=== PATIENT | male | born 1955 | race Caucasian/White ===

== ENCOUNTER 2020-11-20 15:05 | Outpatient (RCR) | payer OTHER, SELFPAY ==
[2020-11-20] MEDS: COVID-19 VACC, MRNA(PFIZER)/PF 30 MCG/0.3 ML SYRINGE IM (08:52)
[2020-12-11] MEDS: COVID-19 VACC, MRNA(PFIZER)/PF 30 MCG/0.3 ML SYRINGE IM (08:45)
== END 2020-11-20 23:59 ==
LOC: IMMUN 15:05
PROVIDERS: PCP Family Medicine; Visit Provider Family Medicine
DX: Z23 Encounter for immunization (principal)
CPT/HCPCS: 0001A; 0002A; 91300

== ENCOUNTER 2021-09-08 15:19 | Outpatient (CLI) | payer OTHER, SELFPAY ==
[2021-09-08 18:05] LABS: Anion Gap 11 (5-15); BUN 14 mg/dL (7-18); BUN/Creat Ratio 14.3 RATIO (10-20); Calcium,Total 9.5 mg/dL (8.5-10.1); Chloride 104 mmol/L (98-107); Cholesterol 194 mg/dL (200); Creatinine, Serum 0.98 mg/dL (0.70-1.30); EST Glomerular Filtration Rate 82 mL/min (>60); Est Glom Filt Rate - Afr Amer 99 mL/min (>60); Glucose 117 mg/dL (74-106); High Density Lipoprotein 49 mg/dL; Sodium Level 140 mmol/L (136-145); Triglycerides 82 mg/dL; Very Low Density Lipoprotein 16 mg/dL (5-40)
== END 2021-09-08 23:59 | disposition short-term general hospital (02) ==
LOC: MFPLAB 15:21
PROVIDERS: PCP Family Medicine; Referring Provider Family Medicine; Visit Provider Family Medicine
DX: I10 Essential (primary) hypertension (principal)
CPT/HCPCS: 36415; 80048; 80061

== ENCOUNTER 2022-07-15 05:24 | Day surgery (SDC) | payer MEDICARE, OTHER, SELFPAY ==
[2022-07-15] VITALS (14 sets, daily range): BP systolic 109–170; BP diastolic 62–99; PULSE 64–77; RESP 16–18; TEMP 36.1–36.5; O2SAT 97–100; BMI 33.7
--- NOTE | 2022-07-15 | COLBX_PTH ---
PATIENT: ZAYRA ZURITA LOC: EN U#:[id number] AGE/SX: 66/M ROOM: RE07/15/[address]: Dr. Zheng Berumen MD : 1955 BED: DIS: 07/15/2022 SPEC #: [id number] RECD: 07/15/22 11:59 STATUS: BIN CHANG #: [id number] HOPE: 07/15/22 00:[address]: Zheng Berumen DEPT: SURGICAL PATHOLOGY RECD BY: Victor Hugo Carter ENTERED: 07/15/22 12:00 SP TYPE: COLON BX OTHR DR: Dr. Festus Mar MD Tissues: Rectum, NOS Procedures: Surgery Specimen Level IV HEADER OPERATION: Colonoscopy with polypectomy ? open access (MOD) PRE-OP DIAGNOSIS: Screening TISSUE SUBMITTED: Rectum polyp MICROSCOPIC DIAGNOSIS Rectum polyp, polypectomy: Fragments of hyperplastic polyp. /SJ 07/18/22 MICROSCOPIC DESCRIPTION Slides are reviewed. GROSS DESCRIPTION Received in fixative is one container labeled with the patient's name and designated rectal polyp. The specimen consists of multiple irregular fragments of light [place]wood soft tissue that in aggregate measure 1.3 x 0.3 x 0.1 cm. The specimen is totally submitted in one cassette. / SJ:rg 07/15/2022 TC:1 CPT: 09432
[2022-07-15] MEDS: Lactated Ringers 1,000 ML 15 ML IV (06:00)
--- NOTE | 2022-07-15 06:00 | PCM.HP.STD ---
[facility] - General General Date of Service: 07/15/22 Chief Complaint: Screening for intestinal cancer [facility] Narrative ZAYRA ZURITA, is a 66 M who presents for screening colonoscopy. He presents via open access today. His previous examination was June 2011. PENDING SALE TO [facility] Medical History Alcohol use Gastric reflux H/O psoriasis HTN (hypertension) Non-smoker Obesity Pure hypercholesterolemia, unspecified Wears glasses Home Medications losartan 50 mg tablet 50 mg PO QHS 06/01/22 [History Last Taken Unknown] multivitamin 1 tab PO DAILY 06/01/22 [History Last Taken Unknown] Allergy/AdvReac Type Severity Reaction Status Date / Time poison nunu extract Allergy Itching Verified 07/15/22 05:48 Family History (Updated 06/01/22 @ 11:42 by Shalini Mathis) Grandfather Esophageal cancer Heart failure Grandmother Breast cancer Mother Colon polyps Surgical History History of colonoscopy History of root canal procedure [place] teeth extracted Social History (Updated 06/01/22 @ 11:43 by Shalini Mathis) household members: spouse current occupational status: retired Smoking Status: Former smoker ROS Constitutional Constitutional: Reports systems reviewed and no addt'l complaints, except as documented Cardiovascular Cardiovascular: Denies chest pain Respiratory/Chest Respiratory/Chest: Denies shortness of breath at rest Gastrointestinal Gastrointestinal: Denies abdominal pain, change in bowel habits, hematochezia or melena Vital Signs Vital Signs Vital Signs: 07/15/22 05:49 07/15/22 05:51 Temperature 97.3 F L Temperature Source Temporal Pulse Rate 64 Respiratory Rate 18 Respiratory Pattern Normal Blood Pressure 160/71 H Blood Pressure Mean 100 Blood Pressure Source Monitor Blood Pressure Position Semi-Fowlers Blood Pressure Location Left Arm Pulse Ox 100 Oxygen Delivery Method Room Air Weight Weight: 221 lb 9.6 oz Body Mass Index (BMI) 33.7 Physical Exam Const alert, oriented x3 and no apparent distress General Appearance: cooperative and comfortable Eyes General Eye: normal appearance of both eyes Neck General: normal visual inspection Chest inspection of chest normal Resp Effort and Inspection: able to speak in complete sentences and symmetric chest movement Auscultation: clear to auscultation bilaterally Cardio regular rate and regular rhythm GI soft to palpation, non-tender and non-distended Extremity no calf tenderness Neuro oriented x3 Psych thought process normal Assessment & Plan Assessment/Plan (1) Encounter for screening for malignant neoplasm of colon: PLAN: I recommended the patient a screening colonoscopy with possible biopsy or polypectomy as indicated. He presents via open access today. He is aware of the technique, benefit, risk, alternatives. He has had an opportunity to ask and have questions answered. We will proceed as noted. Zheng Berumen M.D., F.A.C.S.
[2022-07-15] MEDS: Midazolam 5 MG/ML Syringe (06:34)
--- NOTE | 2022-07-15 06:53 | OP.COLON_ITS ---
Patient Name: Christofer Kinney Procedure Date: 07/15/2022 6:20 AM Date of : 1955 Age: 66 Procedure: Colonoscopy Indications: Screening for colorectal malignant neoplasm Providers: Zheng Berumen MD Medicines: Midazolam 4 mg IV, Meperidine 100 mg IV Patient Profile: Last Colonoscopy: June 2011. Complications: No immediate complications. Procedure: Pre-Anesthesia Assessment: - Prior to the procedure, a History and Physical was performed, and patient medications and allergies were reviewed. The patient's tolerance of previous anesthesia was also reviewed. The risks and benefits of the procedure and the sedation options and risks were discussed with the patient. All questions were answered, and informed consent was obtained. Prior Anticoagulants: The patient has taken no previous anticoagulant or antiplatelet agents. ASA Grade Assessment: II - A patient with mild systemic disease. After reviewing the risks and benefits, the patient was deemed in satisfactory condition to undergo the procedure. After I obtained informed consent, the scope was passed under direct vision. Throughout the procedure, the patient's blood pressure, pulse, and oxygen saturations were monitored continuously. The colonoscope was introduced through the anus and advanced to the cecum, identified by appendiceal orifice and ileocecal valve. The colonoscopy was performed without difficulty. The patient tolerated the procedure well. The quality of the bowel preparation was good. The ileocecal valve and the appendiceal orifice were photographed. Moderate Sedation: Moderate (conscious) sedation was personally administered by the endoscopist. The following parameters were monitored: oxygen saturation, heart rate, blood pressure, and response to care. Total physician intraservice time was 15 minutes. Scope In: 6:34:18 AM Scope Withdrawal Time 0 hours 10 minutes 22 seconds Scope Out: 6:48:28 AM Total Procedure Duration Time 0 hours 14 minutes 10 seconds Findings: The perianal and digital rectal examinations were normal. A 3 mm polyp was found in the rectum. The polyp was sessile. The polyp was removed with a cold biopsy forceps. Resection and retrieval were complete. The exam was otherwise without abnormality. Impression: - One 3 mm polyp in the rectum, removed with a cold biopsy forceps. Resected and retrieved. - The examination was otherwise normal. Recommendation: - Discharge patient to home. - Resume previous diet. - Continue present medications. - Repeat colonoscopy in 5 years for surveillance based on pathology results. - Telephone my office for pathology results in 1 week. Procedure Code(s): --- Professional --- 36279, Colonoscopy, flexible; with biopsy, single or multiple 76497, 59, Moderate sedation services provided by the same physician or other qualified health career development counselor performing the diagnostic or therapeutic service that the sedation supports, requiring the presence of an independent trained observer to assist in the monitoring of the patient's level of consciousness and physiological status; initial 15 minutes of intraservice time, patient age 5 years or older Diagnosis Code(s): --- Professional --- Z12.11, Encounter for screening for malignant neoplasm of colon K62.1, Rectal polyp CPT copyright 2017 [employer]. All rights reserved. The codes documented in this report are preliminary and upon drum builder review may be revised to meet current compliance requirements. Zheng Berumen MD 07/15/2022 6:52:44 AM This report has been signed electronically. Number of Addenda: 0 Note Initiated On: 07/15/2022 6:20 AM
--- NOTE | 2022-07-15 06:54 | OP.CCLET_ITS ---
07/15/2022 Festus Mar [address] [place] [address] Re : Colonoscopy procedure for Christofer Kinney Dear Dr. Mar This procedure was performed on Friday, July 15, 2022. My impressions and recommendations are as follows: Impressions : - One 3 mm polyp in the rectum, removed with a cold biopsy forceps. Resected and retrieved. - The examination was otherwise normal. Recommendations : - Discharge patient to home. - Resume previous diet. - Continue present medications. - Repeat colonoscopy in 5 years for surveillance based on pathology results. - Telephone my office for pathology results in 1 week. My findings are described in the full procedure note, which is enclosed. If I can be of further assistance, please feel free to contact me at Doctor phone number(s): Work: . Sincerely, Zheng Berumen MD 07/15/2022 6:52:44 AM This report has been signed electronically.
== END 2022-07-15 07:34 | disposition home or self-care (01) ==
LOC: EN 05:26 → AC 05:27
PROVIDERS: PCP Family Medicine; Referring Provider Family Medicine; Visit Provider Surgery
PROC: 0DJD8ZZ Inspection of Lower Intestinal Tract, Via Natural or Artificial Opening Endoscopic (ICD-10-PCS; CPT 45378; principal; 2022-07-15 06:25)
DX: Z12.11 Encounter for screening for malignant neoplasm of colon (principal); K62.1 Rectal polyp; I10 Essential (primary) hypertension; Z87.891 Personal history of nicotine dependence; Z79.899 Other long term (current) drug therapy
CPT/HCPCS: 45380; 88305; 99152; 99153; J7120

== ENCOUNTER → 2022-09-09 | Outpatient (CLI) | payer MEDICARE, OTHER, SELFPAY ==
[2022-09-09 12:38] LABS: ALB/GLOB Ratio 1.3 RATIO (0.9-2.4); AST(SGOT) 17 U/L (15-37); Alanine Aminotransfer ALT/SGPT 31 U/L (16-61); Albumin, Serum 3.8 g/dL (3.2-5.0); Alkaline Phosphatase 82 U/L (45-117); Anion Gap 9 (5-15); BUN 14 mg/dL (7-18); BUN/Creat Ratio 14.7 RATIO (10-20); Calcium,Total 8.8 mg/dL (8.5-10.1); Chloride 106 mmol/L (98-107); Cholesterol 199 mg/dL (200); Creatinine, Serum 0.95 mg/dL (0.70-1.30); EST Glomerular Filtration Rate 84 mL/min (>60); Est Glom Filt Rate - Afr Amer 102 mL/min (>60); Globulin 2.9 g/dL (2.2-4.2); Glucose 99 mg/dL (74-106); High Density Lipoprotein 43 mg/dL; Potassium 4.3 mmol/L (3.5-5.1); Protein, Total 6.7 g/dL (6.4-8.2); Sodium Level 141 mmol/L (136-145); Triglycerides 125 mg/dL; Very Low Density Lipoprotein 25 mg/dL (5-40)
== END | disposition home or self-care (01) ==
LOC: MFPLAB 09:21
PROVIDERS: PCP Family Medicine; Visit Provider Family Medicine
DX: I10 Essential (primary) hypertension (principal); E66.01 Morbid (severe) obesity due to excess calories
CPT/HCPCS: 36415; 80053; 80061

== ENCOUNTER → 2023-03-10 | Outpatient (CLI) | payer MEDICARE, OTHER, SELFPAY ==
[2023-03-10 13:03] LABS: Microalbumin,Random Urine 5.8 mg/L (NO RANGE EST.); Microalbumin:Creatinine Ratio 7.4 mg/g CRE (<30 mg/g CRE)
[2023-03-10 13:07] LABS: ALB/GLOB Ratio 1.1 RATIO (0.9-2.4); AST(SGOT) 15 U/L (15-37); Alanine Aminotransfer ALT/SGPT 30 U/L (16-61); Albumin, Serum 3.7 g/dL (3.2-5.0); Alkaline Phosphatase 86 U/L (45-117); Anion Gap 3 (5-15); BUN 13 mg/dL (7-18); BUN/Creat Ratio 13.1 RATIO (10-20); Calcium,Total 9.1 mg/dL (8.5-10.1); Chloride 105 mmol/L (98-107); Cholesterol 182 mg/dL (200); EST Glomerular Filtration Rate 80 mL/min (>60); Est Glom Filt Rate - Afr Amer 97 mL/min (>60); Globulin 3.5 g/dL (2.2-4.2); Glucose 108 mg/dL (74-106); High Density Lipoprotein 43 mg/dL; PSA,Total - Annual Screen 0.45 ng/mL (0.00-4.00); Potassium 4.4 mmol/L (3.5-5.1); Protein, Total 7.2 g/dL (6.4-8.2); Sodium Level 138 mmol/L (136-145); Triglycerides 172 mg/dL; Very Low Density Lipoprotein 34 mg/dL (5-40)
== END | disposition home or self-care (01) ==
LOC: MFPLAB 09:35
PROVIDERS: PCP Family Medicine; Visit Provider Family Medicine
DX: I10 Essential (primary) hypertension (principal); Z12.5 Encounter for screening for malignant neoplasm of prostate; E78.00 Pure hypercholesterolemia, unspecified
CPT/HCPCS: 36415; 80053; 80061; 82043; 82570; 84153; G0103

== ENCOUNTER → 2023-09-11 | Outpatient (CLI) | payer MEDICARE, OTHER, SELFPAY ==
[2023-09-11 10:28] LABS: Absolute Lymphocyte Count 2.61 X10^3/uL (0.83-4.51); Absolute Neutrophil Count 3.8 X10^3/uL (2.0-7.7); Basophil# 0.08 X10^3/uL; Basophil% 1.1 % (0-1); Eosinophil# 0.29 X10^3/uL; Eosinophils% 3.9 % (0-5); Hematocrit 47.2 % (40-54); Hemoglobin 15.7 g/dL (13.0-16.5); Lymphocyte # 2.61 X10^3/ul (0.83-4.51); Lymphocyte % 35.4 % (19-41); Mean Corp Hgb Conc 33.3 g/dL (32-36); Mean Corpuscular Hgb 30.8 pg (27.0-32.0); Mean Corpuscular Volume 92.5 fL (80-94); Mean Platelet Vol. 9.5 fl (6.2-12.0); Monocyte# 0.62 X10^3/uL; Monocyte% 8.4 % (0-10); NRBC Flagged by Analyzer 0 % (0-5); Neutrophil # 3.75 X10^3/uL (2.7-7.7); Neutrophil % 50.8 % (47-70); Platelet Count 258 K/mm3 (150-450); RBC Distribution Width CV 12.8 % (11.6-14.6); RBC Distribution Width SD 43.6 fl (35.1-43.9); White Blood Count 7.4 K/mm3 (4.4-11.0)
[2023-09-11 11:11] LABS: Anion Gap 5 (5-15); BUN 15 mg/dL (7-18); BUN/Creat Ratio 13.9 RATIO (10-20); Calcium,Total 9.4 mg/dL (8.5-10.1); Chloride 106 mmol/L (98-107); Creatinine, Serum 1.08 mg/dL (0.70-1.30); EST Glomerular Filtration Rate 73 mL/min (>60); Est Glom Filt Rate - Afr Amer 88 mL/min (>60); Glucose 115 mg/dL (74-106); Potassium 4.4 mmol/L (3.5-5.1); Sodium Level 138 mmol/L (136-145)
== END | disposition home or self-care (01) ==
LOC: MFPLAB 08:34
PROVIDERS: PCP Family Medicine; Visit Provider Family Medicine
DX: R05.9 Cough, unspecified (principal); I10 Essential (primary) hypertension
CPT/HCPCS: 36415; 80048; 85025

== ENCOUNTER 2024-07-24 08:30 | Outpatient (RCR) | payer MEDICARE, OTHER, SELFPAY ==
--- NOTE | 2024-07-02 08:55 | HP.PTEVAL_ITS ---
Patient's Visit Information Visit Information Visit Information: ZAYRA ZURITA is a 68 year old M referred to Physical Therapy by RADHA Summers with a diagnosis of R knee pain. Date of Evaluation: 07/02/24 Physical Therapist: Wilder Mcguire, PT, ATC Visit Plan Frequency: 2x /Week Duration: 4 Weeks Plan: R LE strengthening, core stab ex's, balance and proprio, bike, and HEP Subjective Subjective: Pt reports he has had R knee pain intermittently over the years that would go away in 1-2 days. This episode started 3 weeks ago and has not let up. Pt reports his pain is worse when he attempts to descend stairs. Pn reports he has to negotiate the stairs backwards. Pt reports no Dx tests at this time. Pt reports most of his pain is on the inside of his R knee. Pt notes his pain even hurts while he is sleeping. Pt denies knee giving out or locking up on him at this time. Pt denies any tingling or numbness in R knee. Pt reports he has difficulty with performing most of his daily chores secondary to pain. 1/10 pain in R knee while sitting down, 4/10 at worst. 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 Palpation: Pt is tender on the medial aspect of R knee. No obvious deformity at this time. No crepitus with AROM ROM: L knee 0-120 degrees, R knee 0-15-105 degrees MMT: L knee flex= 45, ext= 63 #F; R knee flex= 41, ext= 35 #F Special tests: Pos compression test Balance/Special Test Scores Lower Extremity Functional Score: 67 Goals Goal 1:: Decrease R knee pain x 50% to aid with sleep Goal Time Frame: 2-4 Weeks Goal 2:: Increase R knee extension strength x 10#F to aid with stair negotiation Goal Time Frame: 2-4 Weeks Goal 3:: Increase R knee ROM x 10 degrees to aid with squatting activity Goal Time Frame: 2-4 Weeks Goal 4:: I with HEP Goal Time Frame: 2-4 Weeks Rehabilitation Potential Physical Therapy Diagnosis: Pt has R knee pain, weakness, and limited ROM secondary to degenerative changes Rehabilitation Potential: Good Anticipated Interventions Patient/Client Instruction: Educate patient on: Condition and Plan of Care For the Purpose of:: To improve self management Therapeutic Exercise to Include: Strength training, Balance training, Flexibilty training and Dynamic Lumbar Stabilization For the Purpose of:: To decrease pain, To increase ROM and To improve muscle performance and motor function Cryotherapy (ice pack, ice massage): Yes For the Purpose of:: To decrease pain Text: Thank you for the opportunity to evaluate your patient. For Medicare and Medicare HMO plans, please review the plan of care and approve it. It will need to be FAXED BACK to us at [phone] for Medicare purposes. For Medicare only, by signing this I certify the plan of care. Please let me know if there are questions or concerns regarding this plan of care. Physician Signature: Date:_
--- NOTE | 2024-07-24 09:11 | HP.PTDCSUM ---
Discharge Summary D/C summary: It has been my pleasure to treat ZAYRA ZURITA referred by RADHA Summers, with the diagnosis of R knee pain for a total of 7 visit(s). Discharge Date: Please see the following information for a summary of their discharge status. Subjective Subjective: My pain is about the same Pain R knee: Pain Intensity (Out of 10): 4 Overall Improvement % Improvement: 10 Objective Objective/Function: R knee pain ranges from 4-5/10 R knee ROM: 0-3-117 degrees R knee MMT: ext= 29 #F Pain and strength have remained relatively unchanged. ROM has significantly improved Goals Goal 1:: Decrease R knee pain x 50% to aid with sleep Goal Progress: Progressing Goal 2:: Increase R knee extension strength x 10#F to aid with stair negotiation Goal Progress: Not Progressing Goal 3:: Increase R knee ROM x 10 degrees to aid with squatting activity Goal Progress: Goal Met Goal 4:: I with HEP Goal Progress: Goal Met Plan Plan: Discontinue secondary to lack of progress. Cont with HEP D/C Information d/c sentence: If there are questions or concerns regarding this patient's physical therapy, please feel free to call me at [phone]. Thank you for the referral of this patient. Sincerely, Wilder Mcguire, PT, ATC Balance/Gait/Functional tests Balance/Special Test Scores Lower Extremity Functional Score: 60 Improvement % Improvement: 10
== END 2024-07-24 09:21 | disposition home or self-care (01) ==
LOC: PT 08:30
PROVIDERS: PCP Family Medicine
DX: M25.561 Pain in right knee (principal)
CPT/HCPCS: 97110; 97161; 97530

== ENCOUNTER → 2024-08-12 | Outpatient (CLI) | payer MEDICARE, OTHER, SELFPAY ==
--- NOTE | 2024-08-12 16:15 | MRI_ITS ---
STUDY: MRI RIGHT KNEE REASON FOR EXAM: Male, 68 years old. Knee pain for 4 months. No known injury. TECHNIQUE: Standardized fat and water weighted pulse sequences were obtained in all 3 orthogonal planes. COMPARISON: None. FINDINGS: There is a horizontal tear of the body of the medial meniscus (coronal PD series 6 images 15-17). There is mild reactive subchondral marrow edema medial tibial plateau. Normal hyaline cartilage of the medial femorotibial compartment. There is mild osteoarthritic spur formation of the medial knee compartment. There is a mild grade I MCL sprain with periligamentous edema (coronal T2 series 7 images 15-17). Normal distal semimembranosus, gracilis and semitendinosus tendons. Normal lateral meniscus. There is mild degenerative arthrosis of the lateral femorotibial compartment with tiny marginal osteophyte formation and focal chondromalacia along the posterior weightbearing surface of the lateral femoral condyle (coronal T2 series 7 image 19). Normal proximal tibiofibular articulation. Normal lateral collateral (fibular) ligament. Normal popliteus tendon. Normal biceps femoris tendon. Normal anterior cruciate ligament (ACL). Normal posterior cruciate ligament (PCL). There is focal low-grade chondromalacia along the lateral aspect of the patellar apex (axial T2 series 3 image 22). There is mild lateral patellar subluxation. Normal medial and lateral patellar retinaculum. Normal quadriceps tendon. Normal patellar tendon. Normal Hoffa''s fat pad. There is a small joint effusion. There is a small popliteal cyst. There is mild subcutaneous soft tissue edema along the medial aspect of the knee. There is no acute fracture. MRI/Lower Ext Joint Only (Routine) IMPRESSION: Horizontal tear of the body of the medial meniscus. Mild reactive subchondral marrow edema medial tibial plateau. Mild tricompartment degenerative arthrosis. Mild grade I MCL sprain. Mild lateral patellar subluxation. Small joint effusion, with a small popliteal cyst. Mild subcutaneous soft tissue edema along the medial aspect of the knee. Electronically Signed: Chris Sewell MD at 11:40 EST ,
== END | disposition home or self-care (01) ==
LOC: MRI 15:40
PROVIDERS: PCP Family Medicine
DX: M25.561 Pain in right knee (principal)
CPT/HCPCS: 73721

== ENCOUNTER → 2025-04-18 | Outpatient (CLI) | payer MEDICARE, OTHER, SELFPAY ==
--- OUTSIDE RECORDS SUMMARY | 2025-04-18 08:22 | XMS RPT_ITS | CCD ---
Author Organization [facility] Care Team Providers Care Dowel Pin Worker Name Role Phone Dr. Festus Mar Primary Care Provider [phone] Shalini Mathis Attending Provider Unavailable Dr. Festus Mar Referring Provider [phone] Zheng Berumen Attending Provider [phone] Dr. Zheng Berumen Other Provider [phone] Yeyo, [place] Referring Unavailable Festus Mar Primary Care Unavailable KimberliorrIsrael hollingsworth Attending Unavailable Kimberliorrow, [place] Referring Unavailable Festus Mar Primary [facility] [place] Attending Unavailable Allergies Allergy Classification Reported Allergen(s) Allergy Type Date of Onset Reaction(s) Facility (4 sources) POISON NUNU EXTRACT Drug Allergy 07-15-2022 Itching [facility] (1 source) poison nunu extract Drug allergy (disorder) 07-15-2022 [facility] Repository Medications Current Medications Medication Drug Class(es) Dates Sig (Normalized) Sig (Original) losartan potassium 50 mg oral tablet (4 sources) Angiotensin 2 Receptor Rose Start: 06-01-2022 take 50 mg by mouth at bedtime Losartan Active 50 MG PO AT BEDTIME May 31, 2022 11:00pm Multivitamin preparation (4 sources) Start: 06-01-2022 take 1 tablet by mouth once daily Multivitamin Active 1 TABLET PO DAILY June 01, 2022 12:00am Start: 06-01-2022 take 1 tablet by araceli th once daily Multivitamin Active 1 TABLET PO DAILY May 31, 2022 11:00pm Problems Problem Classification Problem Date Documented Da te Episodic/Chronic Other non-traumatic joint disorders (1 source) Pain in right knee; Translations: [Pain in right knee] Onset: 09-12-2024 Episodic Other screening for suspected conditions (not mental disorders or infectious disease) (6 sources) Patient encounter status; Translations: [Encounter for screening for malignant neoplasm of colon] Episodic Results Test Name Value Interpretation Reference Range Facility Lower Ext Joint Only (Routin e)on 08-12-2024 Lower Ext Joint Only (Routine) [facility] Imaging Services [address] [place] [address] Lower Ext Joint Only (Routine) MR#: [id number] Acct: [id number] Name: ZAYRA ZURITA Rep #: [id number] : 1955 M 68 From: Chris Sewell MD PCP: Dr. Festus Mar MD Status: REG CLI Study: Lower Ext Joint Only (Routine) Date of Exam: 10/13/23 Exam# [id number] Ordering Dr: Israel Orona NP [employer] -C [id number] STUDY: MRI RIGHT KNEE REASON FOR EXAM: Male, 68 years old. Knee pain for 4 months. No known injury. TECHNIQUE: Standardized fat and water weighted pulse sequences were obtained in all 3 orthogonal planes. COMPARISON: None. FINDINGS: There is a horizontal tear of the body of the medial meniscus (coronal PD series 6 images 15-17). There is mild reactive subchondral marrow edema medial tibial plateau. Normal hyaline cartilage of the medial femorotibial compartment. There is mild osteoarthritic spur formation of the medial knee compartment. There is a mild grade I MCL sprain with periligamentous edema (coronal T2 series 7 images 15-17). Normal distal semimembranosus, gracilis and semitendinosus tendons. Normal lateral meniscus. There is mild degenerative arthrosis of the lateral femorotibial compartment with tiny marginal osteophyte formation and focal chondromalacia along the posterior weightbearing surface of the lateral femoral condyle (coronal T2 series 7 image 19). Normal proximal tibiofibular articulation. Normal lateral collateral (fibular) ligament. Normal popliteus tendon. Normal biceps femoris tendon. Normal anterior cruciate ligament (ACL). Normal posterior cruciate ligament (PCL). There is focal low-grade chondromalacia along the lateral aspect of the patellar apex (axial T2 series 3 image 22). There is mild lateral patellar subluxation. Normal medial and lateral patellar retinaculum. Normal quadriceps tendon. Normal patellar tendon. Normal Hoffa''s fat pad. There is a small joint effusion. There is a small popliteal cyst. There is mild subcutaneous soft tissue edema along the medial aspect of the knee. There is no acute fracture. MRI/Lower Ext Joint Only (Routine) IMPRESSION: Horizontal tear of the body of the medial meniscus. Mild reactive subchondral marrow edema medial tibial plateau. Mild tricompartment degenerative arthrosis. Mild grade I MCL sprain. Mild lateral patellar subluxation. Small joint effusion, with a small popliteal cyst. Mild subcutaneous soft tissue edema along the medial aspect of the knee. Electronically Signed: Chris Sewell MD at 11:40 EST Reading Location ID and State: [address] [place] [address] , Service support , CC: Israel Orona; Dr. Festus Mar MD Experimental Box Tester: Signed Normal [facility] PT D/C Summary (1)on [facility] PT D/C Summary (1) [facility] Physical Therapy [address] [place] [address] / REHABILITATION SERVICES DISCHARGE SUMMARY MR#: [id number] Acct: [id number] Name: ZAYRA ZURITA Rep #: [id number] : 1955 68 From: Wilder Mcguire PT, ATC Referring DrIlsa: Israel Orona Status: R EG RCR Insurance: MEDICARE PART A B [facility] Discharge Summary D/C summary: It has been my pleasure to treat ZAYRA ZURITA referred by RADHA Summers, with the diagnosis of R knee pain for a total of 7 visit(s). Discharge Date: Please see the following information for a summary of their discharge status. Subjective Subjective: My pain is about the same Pain R knee: Pain Intensity (Out of 10): 4 Overall Improvement % Improvement: 10 Objective Objective/Function: R knee pain ranges from 4-5/10 R knee ROM: 0-3-117 degrees R knee MMT: ext= 29 #F Pain and strength have remained relatively unchanged. ROM has significantly improved Goals Goal 1:: Decrease R knee pain x 50% to aid with sleep Goal Progress: Progressing Goal 2:: Increase R knee extension strength x 10#F to aid with stair negotiation Goal Progress: Not Progressing Goal 3:: Increase R knee ROM x 10 degrees to aid with squatting activity Goal Progress: Goal Met Goal 4:: I with HEP Goal Progress: Goal Met Plan Plan: Discontinue secondary to lack of progress. Cont with HEP D/C Information d/c sentence: If there are questions or concerns regarding this patient's physical therapy, please feel free to call me at [phone]. Thank you for the referral of this patient. Sincerely, Wilder Mcguire, PT, ATC Balance/Gait/Functio nal tests Balance/Special Test Scores Lower Extremity Functional Score: 60 Improvement % Improvement: 10 07/24/24 0911 CC: Israel Orona; Dr. Festus Mar MD [facility] Signed Normal [facility] Inital Evaluation (1) - PTon 07-02-2024 Inital Evaluation (1) - PT [facility] Physical Therapy [facility] [address] [place] [address] [address] [place] [address] / REHABILITATION SERVICES INITIAL EVALUATION MR#: [id number] Acct: [id number] Name: ZAYRA ZURITA Rep #: [id number] : 1955 68 From: Wilder Mcguire PT, ATC Referring Dr.: Israel Orona NP Status: R EG RCR Insurance: MEDICARE PART A B [facility] Patient's Visit Information Visit Information Visit Information: ZAYRA ZURITA is a 68 year old M referred to Physical Therapy by RADHA Summers with a diagnosis of R knee pain. Date of Evaluation: 07/02/24 Physical Therapist: Wilder Mcguire, PT, ATC Visit Plan Frequency: 2x /Week Duration: 4 Weeks Plan: R LE strengthening, core stab ex's, balance and proprio, bike, and HEP Subjective Subjective: Pt reports he has had R knee pain intermittently over the years that would go away in 1- 2 days. This episode started 3 weeks ago and has not let up. Pt reports his pain is worse when he attempts to descend stairs. Pn reports he has to negotiate the stairs backwards. Pt reports no Dx tests at this time. Pt reports most of his pain is on the inside of his R knee. Pt notes his pain even hurts while he is sleeping. Pt denies knee giving out or locking up on him at this time. Pt denies any tingling or numbness in R knee. Pt reports he has difficulty with performing most of his daily chores secondary to pain. 1/10 pain in R knee while sitting down, 4/10 at worst. Pt is retired at this time, but still works in [employer] Pain R knee: Pain Intensity (Out of 10): 1 Pain Intensity Range: 4 Objective Objective: Neuro: B LE sensation is WNL to light touch. Palpation: Pt is tender on the medial aspect of R knee. No obvious deformity at this time. No crepitus with AROM ROM: L knee 0-120 degrees, R knee 0-15-105 degrees MMT: L knee flex= 45, ext= 63 #F; R knee flex= 41, ext= 35 #F Special tests: Pos compression test Balance/Special Test Scores Lower Extremity Functional Score: 67 Goals Goal 1:: Decrease R knee pain x 50% to aid with sleep Goal Time Frame: 2-4 Weeks Goal 2:: Increase R knee extension strength x 10#F to aid with stair negotiation Goal Time Frame: 2-4 Weeks Goal 3:: Increase R knee ROM x 10 degrees to aid with squatting activity Goal Time Frame: 2-4 Weeks Goal 4:: I with HEP Goal Time Frame: 2-4 Weeks Rehabilitation Potential Physical Therapy Diagnosis: Pt has R knee pain, weakness, and limited ROM secondary to degenerative changes Rehabilitation Potential: Good Anticipated Interventions Patient/Client Instruction: Educate patient on: Condition and Plan of Care For the Purpose of:: To improve self management Therapeutic Exercise to Include: Strength training, Balance training, Flexibilty training and Dynamic Lumbar Stabilization For the Purpose of:: To decrease pain, To increase ROM and To improve muscle performance and motor function Cryotherapy (ice pack, ice massage): Yes For the Purpose of:: To decrease pain Text: Thank you for the opportunity to evaluate your patient. For Medicare and Medicare HMO plans, please review the plan of care and approve it. It will need to be FAXED BACK to us at [phone] for Medicare purposes. For Medicare only, by signing this I certify the plan of care. Please let me know if there are questions or concerns regarding this plan of care. Physician Signature: D ate: 07/02/24 0855 CC: Israel GARCIA McMorrow; Dr. Festus Mar MD [facility] Signed Normal [facility] Absolute lymphocyte countOrd ered By: Festus Mar on 09-11-2023 Lymphocytes Auto (Unsp spec) [#/Vol] 2.61 10*3/uL 0.83-4.51 [facility] Basophil percentageOrdered B y: Festus Mar on 09-11-2023 Basophils/100 WBC (Bld) 1.1 % 0-1 [facility] Chloride [Moles/Vol] 106 mmol/L 98-107 [facility] Eosinophils/100 WBC (Bld) 3.9 % 0-5 [facility] Glucose [Mass/Vol] 115 mg/dL 74-106 [facility] Comment on above: Fasting Glucose resu lt from 100 to 125 mg/dL suggests IMPAIRED HOMEOSTASIS per A.D.A. criteria. Neutrophils (Bld) [#/Vol] 3.8 10*3/uL 2.0-7.7 [facility] Neutrophils/100 WBC (Bld) 50.8 % 47-70 [facility] Potassium [Moles/Vol] 4.4 mmol/L 3.5-5.1 [facility] Sodium [Moles/Vol] 138 mmol/L 136-145 [facility] WBC (Bld) [#/Vol] 7.4 10*3/uL 4.4-11.0 [facility] Blood erythrocytes count (nu mber/volume)Ordered By: Festus Mar on 09-11-2023 RBC (Bld) [#/Vol] 5.10 10*6/uL 4.6-6.[address] [facility] Blood hemoglobin measurement (mass/volume)Ordered By: Festus Mar on 09-11-2023 Hemoglobin (Bld) [Mass/Vol] 15.7 g/dL 13.0-16.5 [facility] Blood lymphocytes/100 leukoc ytesOrdered By: Festus Mar on 09-11-2023 Lymphocytes/100 WBC (Bld) 35.4 % 19-41 [facility] Blood monocytes/100 leukocyt esOrdered By: Festus Mar on 09-11-2023 Monocytes/100 WBC (Bld) 8.4 % 0-10 [facility] Blood platelet mean volumeOr dered By: Festus Mar on 09-11-2023 Platelet mean volume (Bld) [Entitic vol] 9.5 fL 6.2-12.0 [facility] Determination of erythrocyte mean corpuscular volume (MCV)Ordered By: Festus Mar on 09-11-2023 MCV (RBC) [Entitic vol] 92.5 fL 80-94 [facility] Hematocrit Auto (Bld) [Volum e fraction]Ordered By: Fsetus Mar on 09-11-2023 Hematocrit (Bld) [Volume fraction] 47.2 % 40-54 [facility] Laboratory - Chemistry and C hemistry - challengeOrdered By: Festus Mar on 09-11-2023 CO2 [Moles/Vol] 27.0 mmol/L 21.0-32.0 [facility] Urea nitrogen/Creatinine [Mass ratio] 13.9 mg/mg 10-20 [facility] Laboratory - Hematology and Cell countsOrdered By: Festus Mar on 09-11-2023 Erythrocyte distribution width (RBC) [Entitic vol] 43.6 fL 35.1-43.9 [facility] Erythrocyte distribution width (RBC) [Ratio] 12.8 % 11.6-14.6 [facility] Immature granulocytes/100 WBC (Bld) 0.400 % 0.0-0.9 [facility] Comment on above: IG% - Immature Granu locytes (promyelocytes, myelocytes and metamyelocytes) > 1% indicates that a LEFT SHIFT is Present. MCH (RBC) [Entitic mass] 30.8 pg 27.0-32.0 [facility] Nucleated RBC/100 WBC (Bld) [Ratio] 0 % 0-5 [facility] MCHC Auto (RBC) [Mass/Vol]Or dered By: Festus Mar on 09-11-2023 MCHC (RBC) [Mass/Vol] 33.3 g/dL 32-36 [facility] No Panel InformationOrdered By: Festus Mar on 09-11-2023 Estimated GFR (MDRD) Amer 88 mL/min >60 [facility] Comment on above: GFR Calc Estimated GFR (MDRD) Non-Af Amer 73 mL/min >60 [facility] Comment on above: Non- GFR Calc Platelets bldOrdered By: Aubree Mar on 09-11-2023 Platelets (Bld) [#/Vol] 258 10*3/uL 150-450 [facility] Serum or plasma calcium terri urement (mass/volume)Ordered By: Festus Mar on 09-11-2023 Calcium [Mass/Vol] 9.4 mg/dL 8.5-10.1 [facility] Serum or plasma creatinine m easurement (mass/volume)Ordered By: Festus Mar on 09-11-2023 Creatinine [Mass/Vol] 1.08 mg/dL 0.70-1.30 [facility] Comment on above: The validity of the calculated GFR & GFRAA in patients over 70 years has not been determined. Clinical correlation is essential. Serum or plasma urea nitroge n measurement (mass/volume)Ordered By: Festus Mar on 09-11-2023 Urea nitrogen [Mass/Vol] 15 mg/dL 7-18 [facility] Thin prep Papanicolaou smear with manual screeningOrdered By: Festus Mar on 09-11-2023 Thin prep Papanicolaou smear with manual screening 5 5-15 [facility] Basophil percentageOrdered B y: Festus Mar on 03-10-2023 Bilirubin [Mass/Vol] 0.60 mg/dL 0.20-1.00 [facility] Comment on above: For patients on eltr ombopag therapy, use of Dimension Roff TBIL is not recommended. Chloride [Moles/Vol] 105 mmol/L 98-107 [facility] Cholesterol [Mass/Vol] 182 mg/dL <200 [facility] Comment on above: <200 mg/dL Desirable 200-240 mg/dL Borderline >240 mg/dL High Risk Glucose [Mass/Vol] 108 mg/dL 74-106 [facility] Comment on above: Fasting Glucose resu lt from 100 to 125 mg/dL suggests IMPAIRED HOMEOSTASIS per A.D.A. criteria. Potassium [Moles/Vol] 4.4 mmol/L 3.5-5.1 [facility] Protein [Mass/Vol] 7.2 g/dL 6.4-8.2 [facility] Sodium [Moles/Vol] 138 mmol/L 136-145 [facility] Triglyceride [Mass/Vol] 172 mg/dL <199 [facility] Comment on above: The drugs N-Acetylcy steine and Metamizole may falsely depress this assay.Serum Triglycerides Reference Interval Normal <150 mg/dL Borderline high 150 - 199 mg/dL High 200 - 499 mg/dL Very High > or = 500 mg/dL Laboratory - Chemistry and C hemistry - challengeOrdered By: Festus Mar on 03-10-2023 ALP [Catalytic activity/Vol] 86 U/L 45-117 [facility] ALT [Catalytic activity/Vol] 30 U/L 16-61 [facility] CO2 [Moles/Vol] 30.0 mmol/L 21.0-32.0 [facility] Globulin (S) [Mass/Vol] 3.5 g/dL 2.2-4.2 [facility] Urea nitrogen/Creatinine [Mass ratio] 13.1 mg/mg 10-20 [facility] No Panel InformationOrdered By: Festus Mar on 03-10-2023 Estimated GFR (MDRD) Amer 97 mL/min >60 [facility] Comment on above: GFR Calc Estimated GFR (MDRD) Non-Af Amer 80 mL/min >60 [facility] Comment on above: Non- GFR Calc Prostate Specific Antigen Screen 0.45 ng/mL 0.00-4.00 [facility] Comment on above: This test was perfor med using the TPSA assay method for theNextworth chemistry system. Values obtained with differentassay methods cannot be used interchangably.When changing PSA assays in the course of monitoring apatient, additional sequential testing should be carriedout to confirm baseline values. Urine Microalbumin/Creatinine Ratio 7.4 mg/g CRE <30 [facility] Serum or plasma albumin terri urement (mass/volume)Ordered By: Festus Mar on 03-10-2023 Albumin [Mass/Vol] 3.7 g/dL 3.2-5.0 [facility] Serum or plasma albumin/glob ulin mass ratioOrdered By: Festus Mar on 03-10-2023 Albumin/Globulin [Mass ratio] 1.1 {ratio} 0.9-2.4 [facility] Serum or plasma calcium terri urement (mass/volume)Ordered By: Festus Mar on 03-10-2023 Calcium [Mass/Vol] 9.1 mg/dL 8.5-10.1 [facility] Serum or plasma cholesterol in HDL measurement (mass/volume)Ordered By: Festus Mar on 03-10-2023 Cholesterol in HDL [Mass/Vol] 43 mg/dL >40 [facility] Comment on above: The drugs N-Acetylcy steine and Metamizole may falsely depress this assay. Reference Range HDL <40 mg/dL Low HDL Cholesterol HDL >or= 60 mg/dL High HDL Cholesterol Serum or plasma cholesterol in VLDL measurement (mass/volume)Ordered By: Festus Mar on 03-10-2023 Cholesterol in VLDL [Mass/Vol] 34 mg/dL 5-40 [facility] Serum or plasma creatinine m easurement (mass/volume)Ordered By: Festus Mar on 03-10-2023 Creatinine [Mass/Vol] 1.00 mg/dL 0.70-1.30 [facility] Comment on above: The validity of the calculated GFR & GFRAA in patients over 70 years has not been determined. Clinical correlation is essential. Serum or plasma low density lipoprotein (LDL) cholesterol measurement (mass/volume)Ordered By: Festus Mar on 03-10-2023 Cholesterol in LDL [Mass/Vol] 105 mg/dL 0-130 [facility] Serum or plasma urea nitroge n measurement (mass/volume)Ordered By: Festus Mar on 03-10-2023 Urea nitrogen [Mass/Vol] 13 mg/dL 7-18 [facility] Thin prep Papanicolaou smear with manual screeningOrdered By: Festus Mar on 03-10-2023 Thin prep Papanicolaou smear with manual screening 15 U/L 15-37 [facility] Thin prep Papanicolaou smear with manual screening 3 5-15 [facility] Thin prep Papanicolaou smear with manual screening 5.8 mg/L NO RANGE EST. [facility] Urine creatinine measurement (mass/volume)Ordered By: Festus Mar on 03-10-2023 Creatinine (U) [Mass/Vol] 77.60 mg/dL NO RANGE EST. [facility] Basophil percentageOrdered B y: Dr. Mar on 09-09-2022 Bilirubin [Mass/Vol] 0.50 mg/dL 0.20-1.00 [facility] Comment on above: For patients on eltr ombopag therapy, use of Dimension Roff TBIL is not recommended. Chloride [Moles/Vol] 106 mmol/L 98-107 [facility] Cholesterol [Mass/Vol] 199 mg/dL <200 [facility] Comment on above: <200 mg/dL Desirable 200-240 mg/dL Borderline >240 mg/dL High Risk Glucose [Mass/Vol] 99 mg/dL 74-106 [facility] Potassium [Moles/Vol] 4.3 mmol/L 3.5-5.1 [facility] Protein [Mass/Vol] 6.7 g/dL 6.4-8.2 [facility] Sodium [Moles/Vol] 141 mmol/L 136-145 [facility] Triglyceride [Mass/Vol] 125 mg/dL <199 [facility] Comment on above: The drugs N-Acetylcy steine and Metamizole may falsely depress this assay.Serum Triglycerides Reference Interval Normal <150 mg/dL Borderline high 150 - 199 mg/dL High 200 - 499 mg/dL Very High > or = 500 mg/dL Laboratory - Chemistry and C hemistry - challengeOrdered By: Dr. Mar on 09-09-2022 ALP [Catalytic activity/Vol] 82 U/L 45-117 [facility] ALT [Catalytic activity/Vol] 31 U/L 16-61 [facility] CO2 [Moles/Vol] 26.0 mmol/L 21.0-32.0 [facility] Globulin (S) [Mass/Vol] 2.9 g/dL 2.2-4.2 [facility] Urea nitrogen/Creatinine [Mass ratio] 14.7 mg/mg 10-20 [facility] No Panel InformationOrdered By: Dr. Mar on 09-09-2022 Estimated GFR (MDRD) Amer 102 mL/min >60 [facility] Comment on above: GFR Calc Estimated GFR (MDRD) Non-Af Amer 84 mL/min >60 [facility] Comment on above: Non- GFR Calc Serum or plasma albumin terri urement (mass/volume)Ordered By: Dr. Mar on 09-09-2022 Albumin [Mass/Vol] 3.8 g/dL 3.2-5.0 [facility] Serum or plasma albumin/glob ulin mass ratioOrdered By: Dr. Mar on 09-09-2022 Albumin/Globulin [Mass ratio] 1.3 {ratio} 0.9-2.4 [facility] Serum or plasma calcium terri urement (mass/volume)Ordered By: Dr. Mar on 09-09-2022 Calcium [Mass/Vol] 8.8 mg/dL 8.5-10.1 [facility] Serum or plasma cholesterol in HDL measurement (mass/volume)Ordered By: Dr. Mar on 09-09-2022 Cholesterol in HDL [Mass/Vol] 43 mg/dL >40 [facility] Comment on above: The drugs N-Acetylcy steine and Metamizole may falsely depress this assay. Reference Range HDL <40 mg/dL Low HDL Cholesterol HDL >or= 60 mg/dL High HDL Cholesterol Serum or plasma cholesterol in VLDL measurement (mass/volume)Ordered By: Dr. Mar on 09-09-2022 Cholesterol in VLDL [Mass/Vol] 25 mg/dL 5-40 [facility] Serum or plasma creatinine m easurement (mass/volume)Ordered By: Dr. Mar on 09-09-2022 Creatinine [Mass/Vol] 0.95 mg/dL 0.70-1.30 [facility] Comment on above: The validity of the calculated GFR & GFRAA in patients over 70 years has not been determined. Clinical correlation is essential. Serum or plasma low density lipoprotein (LDL) cholesterol measurement (mass/volume)Ordered By: Dr. Mar on 09-09-2022 Cholesterol in LDL [Mass/Vol] 131 mg/dL 0-130 [facility] Serum or plasma urea nitroge n measurement (mass/volume)Ordered By: Dr. Mar on 09-09-2022 Urea nitrogen [Mass/Vol] 14 mg/dL 7-18 [facility] Thin prep Papanicolaou smear with manual screeningOrdered By: Dr. Mar on 09-09-2022 Thin prep Papanicolaou smear with manual screening 17 U/L 15-37 [facility] Thin prep Papanicolaou smear with manual screening 9 5-15 [facility] Vital Signs Date Time Vital Sign Value Performing Clinician Faci lity 07-15-2022 07:12-0500 Body temperature 97 [degF] Dr. Festus Mar Work Phone: [facility] 07-15-2022 07:12-0500 Diastolic blood pressure 76 mm[Hg] Dr. Festus Mar Work Phone: [facility] 07-15-2022 07:12-0500 Heart rate 65 /min Dr. Festus Mar Work Phone: [facility] 07-15-2022 07:12-0500 Respiratory rate 16 /min Dr. Festus Mar Work Phone: [facility] 07-15-2022 07:12-0500 SaO2% (BldA) [Mass fraction] 97 % Dr. Festus Mar Work Phone: [facility] 07-15-2022 07:12-0500 Systolic blood pressure 120 mm[Hg] Dr. Festus Mar Work Phone: [facility] 07-15-2022 05:51-0500 Body height 172.[address] Festus Mar Work Phone: [facility] 07-15-2022 05:51-0500 Body mass index (BMI) [Ratio] 33.7 kg/m2 Dr. Festus Mar Work Phone: [facility] 07-15-2022 05:51-0500 Body weight 100.[address] Festus Mar Work Phone: [facility] 06-01-2022 11:49-0400 Body mass index (BMI) [Ratio] 33.9 kg/m2 Dr. Festus Mar Work Phone: [facility] 06-01-2022 11:49-0400 Body weight 101.[address] Festus Mar Work Phone: [facility] Encounters Encounter Date Encounter Type Care Provider Facility Start: 08-12-2024 End: 08-12-2024 [facility] Facility:[facility] Start: 07-24-2024 End: 07-24-2024 [facility] Facility:[facility] Start: 09-11-2023 End: 09-11-2023 ambulatory [facility] Work Phone: Start: 09-11-2023 End: 09-11-2023 Patient encounter procedure [facility] Start: 03-10-2023 End: 03-10-2023 ambulatory [facility] Work Phone: Start: 03-10-2023 End: 03-10-2023 Patient encounter procedure [facility] Start: 09-09-2022 End: 09-09-[address] Festus Mar Work Phone: [facility] Work Phone: Start: 09-09-2022 End: 09-09-[address] Festus Mar Work Phone: [facility] Start: 07-15-2022 Non-patient / Non-visit Dr. Diego Mar Work Phone: [facility] Start: 07-15-2022 End: 11-11-2022 Admission to same day surgery center Dr. Festus Mar Work Phone: [facility] Start: 07-15-2022 End: 07-15-[address] Festus Mar Work Phone: [facility] Work Phone: Start: 06-01-2022 Non-patient / Non-visit Dr. Diego Mar Work Phone: [facility] Procedures Date Procedure Procedure Detail Performing Clinician Start: 07-15-[address] [facility]: Plan of Treatment Date Care Activity Detail Author Start: 07-15-2022 Colonoscopy w/biopsy single/multiple COLONOSCOPY AND BIOPSY [facility] Start: 07-15-2022 Patient discharge [facility] Colonoscopy [facility] Work Phone: Colonoscopy [facility] Patient referral [facility] Work Phone: Immunizations Immunization Date Immunization Notes Care Provider [facility] 12-11-2020 Covid (Pfizer) Dr. Festus harvey Work Phone: [facility] 11-20-2020 Covid (Pfizer) Dr. Festus harvey Work Phone: [facility] Payers Date Payer Category Payer Medicare [id number] 2024 Self-pay [id number] 2024 Unknown [id number] Private Health Insurance [facility] [id number] Unknown [id number] Unknown [id number] Social History Date Type Detail Facility Start: 07-12-2022 End: 07-12-2022 Tobacco smoking status NHIS Unknown if ever smoked [facility] Start: 1955 Sex Assigned At Male [facility] Goals Date Patient Goal Desired Activity /State Mental Status Date Assessment Result Facility 07-15-2022 Cognitive function Level Of Cons ciousness Awake;Drowsy [facility] Work Phone: 07-15-2022 Cognitive function Patient Orien tation Person;Place;Time [facility] Work Phone: Evaluation note Note Date & Type Note Facility Evaluation note Diagnosis Onset Date Encounter for screening for malignant neoplasm of colon acute [facility] Work Phone: Evaluation note Note Date & Type Note Facility Evaluation note No assessment information availa ble [facility] Work Phone: Chief Complaint and Reason for Visit Chief Complaint Amb Documentation Reason for Visit Encounter for screen ing for malignant neoplasm of colon Family History No Family History Records Found Relationship Condition Age at Onset Recorded Date/T katelyn grandfather Malignant neoplasm of esophagus Unknown Heart failure Unknown grandmother Malignant neoplasm of breast Unknown mother Polyp of colon Unknown Advance Directives No Advanced Directives Records Found Advance Directive Response Recorded Date/ Time Name of Medical Power of Passport Support Manager July 12, 2022 3:07pm Living Will Yes July 12 3:07pm Power of Passport Support Manager Yes July 12, 2022 3:07pm Advance Directive Response Recorded Date/ Time Living Will Yes July 12 4:07pm Power of Passport Support Manager Yes July 12, 2022 4:07pm Advance Directive Response Recorded Date/ Time Living Will Yes July 12 3:07pm Power of Passport Support Manager Yes July 12, 2022 3:07pm Summary Purpose Additional Source Comments Care Teams (unrecognized sec tion and content) Team Status: Active Member Role Status Dates Dr. Merly Alonso Family Provider Active Dr. Festus Mar MD Primary Care Provider Active Team Status: Active Member Role Status Dates Dr. Festus Mar MD Primary Care Provider Active Shalini Mathis Attending Provider Active Team Status: Active Member Role Status Dates Dr. Festus Mar MD Primary Care Provider, Referring Carol beverly Active Dr. Zheng Berumen MD Attending Provider, Other Prov ider Active Team Status: Inactive Member Role Status Dates Dr. Festus Mar MD Primary Care Provider, Referring Carol beverly Active Dr. Zheng Berumen MD Attending Provider Active Team Status: Inactive Member Role Status Dates Dr. Festus Mar MD Primary Care Provider, Attending P siria Active Goals (unrecognized section and content) Goals may be documented in a n alternate sectionGoals may be documented in an alternate section (unrecognized sect ion and content) No Status Records Found INFORMATION SOURCE (unrecogn ized section and content) DATE CREATED AUTHOR 09/17/2024 [facility] FOR RECORDS PERTAINING TO PATIENTS WHO ARE OR HAVE BEEN ENROLLED IN A CHEMICAL DEPENDENCY/SUBSTANCEABUSE PROGRAM, SOME INFORMATION MAY BE OMITTED. This clinical summary was aggregated from multiple sources. Caution should be exercised in using it in the provision of clinical care. This summary normalizes information from multiple sources, and as a consequence, information in this document may materially change the coding, format and clinical context of patient data. In addition, data may be omitted in some cases. CLINICAL DECISIONS SHOULD BE BASED ON THE PRIMARY CLINICAL RECORDS. [facility]. provides no warranty or guarantee of the accuracy or completeness of information in this document.
[2025-04-18 10:31] LABS: Hematocrit 43.8 % (40-54); Hemoglobin 14.6 g/dL (13.0-16.5); Immature Granulocytes Count 0.050 X10^3/uL (0.0-0.0); Mean Corp Hgb Conc 33.3 g/dL (32-36); Mean Corpuscular Volume 92.6 fL (80-94); Mean Platelet Vol. 9.9 fl (6.2-12.0); NRBC Flagged by Analyzer 0 % (0-5); Platelet Count 213 K/mm3 (150-450); RBC Distribution Width CV 13.1 % (11.6-14.6); RBC Distribution Width SD 44.4 fl (35.1-43.9); Red Blood Count 4.73 M/mm3 (4.6-6.2); White Blood Count 7.6 K/mm3 (4.4-11.0)
[2025-04-18 10:50] LABS: Creatinine, Urine (random) 120.00 mg/dL (39.00-259.00); Microalbumin,Random Urine < 12.0 mg/L (<20 mg/L)
[2025-04-18 11:01] LABS: AST(SGOT) 23 U/L (<=37); Alanine Aminotransfer ALT/SGPT 29 U/L (<=46); Albumin, Serum 4.1 g/dL (3.4-4.8); Alkaline Phosphatase 75 U/L (40-129); Anion Gap 10 (5-15); BUN 13 mg/dL (4-19); BUN/Creat Ratio 13.1 RATIO (10-20); Calcium,Total 9.1 mg/dL (7.6-11.0); Carbon Dioxide 25.2 mmol/L (21.0-32.0); Chloride 103 mmol/L (98-108); Cholesterol 191 mg/dL (<=200); Globulin 2.3 g/dL (2.2-4.2); Glucose 112 mg/dL (70-99); Low Density Lipoprotein Calc. 122 mg/dL; PSA,Total - Annual Screen 0.53 ng/mL (0.02-4.00); Potassium 4.5 mmol/L (3.3-5.1); Triglycerides 136 mg/dL; Very Low Density Lipoprotein 27 mg/dL (5-40); cholesterol:hdl ratio screen 4.56
== END | disposition home or self-care (01) ==
LOC: MFPLAB 08:00
PROVIDERS: PCP Family Medicine; Visit Provider Family Medicine
DX: Z12.5 Encounter for screening for malignant neoplasm of prostate (principal); E66.01 Morbid (severe) obesity due to excess calories; E78.5 Hyperlipidemia, unspecified; I10 Essential (primary) hypertension
CPT/HCPCS: 36415; 80053; 80061; 82043; 82570; 84153; 85025; G0103